=== PATIENT | female | born 1945 | race Caucasian/White ===

== ENCOUNTER → 2021-04-04 18:04 | Outpatient (CLI) | payer OTHER, SELFPAY ==
--- NOTE | ~2021-04-04 | DEXA_ITS ---
Bone Density Report Name: Allie Vela Age: 76 Sex: Female Ethnicity: White Date of : 1945 Indication: osteopenia; parental hip fracture; height loss; hysterectomy; Referring Provider: Kevon, Adriana [place] Study: Bone densitometry was performed. Exam Date: April 04, 2021 Accession number: [id number] Bone Density: Region BMD T-score Z-score Classification AP Spine (L1, L2, L4) 0.842 -1.7 0.7 Osteopenia Femoral Neck (Left) 0.640 -1.9 0.2 Osteopenia Total Hip (Left) 0.751 -1.6 0.2 Osteopenia Femoral Neck (Right) 0.571 -2.5 -0.4 Osteoporosis Total Hip (Right) 0.658 -2.3 -0.5 Osteopenia Total Hip Mean 0.705 -2.0 -0.2 Osteopenia World Health Organization criteria for BMD impression classify patients as: Normal (T-score at or above -1.0), Osteopenia (T-score between -1.0 and -2.5), or Osteoporosis (T-score at or below -2.5). 10-year Fracture Risk: FRAX not reported because: Some T-score for Spine Total or Hip Total or Femoral Neck at or below -2.5 Previous Exams: Region Exam Age BMD T-score BMD Change BMD Change Date g/cm2 vs Baseline vs Previous AP Spine(L1, L2, L4) 04/04/2021 76 0.842 -1.7 -0.142* -0.088* 10/21/2018 73 0.931 -0.9 -0.053* 0.049* 09/13/2015 70 0.881 -1.4 -0.103* -0.070* 02/17/2013 67 0.951 -0.8 -0.033* 0.029 08/08/2010 65 0.921 -1.0 -0.062 -0.014 12/30/2008 63 0.935 -0.9 -0.049* -0.049* 07/02/2006 61 0.984 -0.5 Total Hip(Left) 04/04/2021 76 0.751 -1.6 -0.165* -0.117* 10/21/2018 73 0.868 -0.6 -0.048* 0.001 09/13/2015 70 0.867 -0.6 -0.049* 0.070* 02/17/2013 67 0.797 -1.2 -0.119* -0.028 08/08/2010 65 0.825 -1.0 -0.091 0.037 12/30/2008 63 0.788 -1.3 -0.128* -0.128* 07/02/2006 61 0.916 -0.2 Total Hip(Right) 04/04/2021 76 0.658 -2.3 -0.196* -0.113* 10/21/2018 73 0.771 -1.4 -0.084* -0.017 09/13/2015 70 0.788 -1.3 -0.067* 0.067* 02/17/2013 67 0.721 -1.8 -0.133* -0.044 08/08/2010 65 0.765 -1.4 -0.089 0.026 12/30/2008 63 0.739 -1.7 -0.116* -0.116* 07/02/2006 61 0.854 -0.7 *Denotes significance at 95% confidence level, LSC for AP Spine = 0.022 g/cm2, LSC for Total Hip = 0.027 g/cm2 Clinical Information Provided by Patient:
== END ==
PROVIDERS: PCP Internal Medicine; Visit Provider Internal Medicine
DX: Z78.0 Asymptomatic menopausal state (principal); M85.89 Other specified disorders of bone density and structure, multiple sites; M81.0 Age-related osteoporosis without current pathological fracture
CPT/HCPCS: 77080

== ENCOUNTER 2021-07-04 13:22 | Inpatient (IN) | payer OTHER, SELFPAY ==
--- NOTE | ~2021-07-04 | XR_ITS ---
XR hip RT 1V 07/05/2021 06:24 Indication: Preop right hip replacement Procedure: 2 views right hip Comparison: No prior studies for comparison. Findings: Mild osteoarthritis of the right hip. In no fracture, subluxation or dislocation. No signif icant soft tissue abnormality. No foreign bodies. There is a subchondral cyst medial aspect of the fe moral head, likely degenerative. Impression: 1: Mild osteoarthritis of the right hip. Reviewed, dictated and finalized at location A. Impression: 1: Mild osteoarthritis of the right hip.
--- NOTE | ~2021-07-04 | XR_ITS ---
EXAMINATION: XR hip LT min 3V w AP pelvis DATE: 07/04/2021 13:45 INDICATION: Left hip pain. Fall. TECHNIQUE: An anteroposterior view of the pelvis and 3 views of left hip were obtained. COMPARISON: None. FINDINGS: There is a subcapital fracture of left femoral neck. The distal fracture fragment demonstra gaye impaction, 7 mm lateral displacement, and 9 mm anterior displacement. There is mild osteoarthriti s of the hips. There is moderate lumbar spondylosis. Osteitis pubis is noted. IMPRESSION: 1. Subcapital fracture of left femoral neck. 2. Mild osteoarthritis of the hips. Reviewed, dictated and finalized at location B.
--- NOTE | ~2021-07-04 | XR_ITS ---
EXAMINATION: XR knee LT 2V DATE: 07/04/2021 14:11 INDICATION: Left knee injury. TECHNIQUE: 2 views of left knee were obtained. COMPARISON: Left knee radiographs 02/09/2014 FINDINGS: Bone alignment is normal. No fracture. There is mild osteoarthritis of lateral and patellof emoral compartments. No knee joint effusion. IMPRESSION: 1. Mild left knee osteoarthritis. Reviewed, dictated and finalized at location B.
--- NOTE | ~2021-07-04 | XR_ITS ---
EXAMINATION: XR chest 1V portable DATE: 07/04/2021 14:11 INDICATION: Abnormal electrocardiogram. Preop. TECHNIQUE: A single frontal view of the chest was obtained. COMPARISON: None. FINDINGS: A calcified right lung nodule and calcified right hilar and mediastinal lymph nodes are con sistent with old granulomatous disease. No pleural effusion or pneumothorax. The heart size is normal . IMPRESSION: 1. No acute cardiopulmonary disease. Reviewed, dictated and finalized at location B.
--- NOTE | ~2021-07-04 | XR_ITS ---
XR surgery orthopedic DATE: 07/05/2021 19:12 INDICATION: Intraoperative left hip TECHNIQUE: Portable crosstable AP view COMPARISON: None FINDINGS: There is resection of the right femoral head and neck. A femoral broach is present, extendi ng into the proximal shaft intramedullary canal. There is expected subcutaneous emphysema in the right hip area. Diffuse osteopenia. IMPRESSION: Femoral broach in the right femur following femoral head and neck resection Reviewed, dictated and finalized at Location A. Reviewed, dictated and finalized at location A. IMPRESSION: Femoral broach in the right femur following femoral head and neck r esection
--- NOTE | ~2021-07-04 | XR_ITS ---
XR hip LT 1V w AP pelvis DATE: 07/05/2021 20:17 INDICATION: Postoperative left hip TECHNIQUE: Portable postoperative AP and crosstable lateral views COMPARISON: 07/04/2021 left hip FINDINGS: Status post left femoral head resection and bipolar left hip replacement. Surgical drain o verlies the left hip are, with minimal expected postoperative subcutaneous emphysema. IMPRESSION: Left bipolar hip replacement Reviewed, dictated and finalized at location A.
[2021-07-04 13:24] VITALS: BP 178/73; PULSE 60; RESP 16; TEMP 37.2; O2SAT 99
--- NOTE | 2021-07-04 13:52 | ECG_ITS ---
Measurements Intervals [place] Rate: 61 P: 77 MA: 163 QRS: 47 QRSD: 114 T: 70 QT: 427 QTc: 432 Interpretive Statements SINUS RHYTHM INCOMPLETE RIGHT BUNDLE BRANCH BLOCK BASELINE ARTIFACT- II, III, AVR, AVF, V1, V3-V6 BORDERLINE ECG Electronically Signed On 07-04-2021 15:07:13 CDT by Ross Castano D.O.
--- NOTE | 2021-07-04 14:06 | ED.FALL ---
HPI - Fall General Chief Complaint: Fall Stated Complaint: FALL S/P TRIPPING Time Seen by Provider: 07/04/21 13:52 Source: patient History of Present Illness HPI Narrative: Patient is 76 years old white female tripped and fell landing on the left hip. Patient denies other injuries. Patient had history of hypertension, hyperlipidemia and hypothyroidism. Is not on blood thinner, denied any history of stroke or heart attack. Does not smoke or drink or uses drugs. Related Data Home Medications Medication Instructions Recorded Confirmed gabapentin TID 07/04/21 levothyroxine DAILY 07/04/21 losartan DAILY 07/04/21 pravastatin DAILY 07/04/21 Allergies Allergy/AdvReac Type Severity Reaction Status Date / Time adhesive tape AdvReac Severe RASH Verified 07/04/21 14:44 Review of Systems Review of Systems: CONSTITUTIONAL: Denies fever, chills, or sweats. EYES: Denies visual changes, redness, or discharge. ENT: Denies rhinorrhea, congestion, sore throat, or otalgia. CARDIOVASCULAR: Denies chest pain, palpitations, or edema. RESPIRATORY: Denies cough or dyspnea. GASTROINTESTINAL: Denies abdominal pain, nausea, vomiting, or diarrhea. GENITOURINARY: Denies dysuria or hematuria. SKIN: Denies rash or itching. MUSCULOSKELETAL: Denies back pain, joint pain, or myalgia. NEUROLOGIC: Denies headache, numbness, or weakness. PSYCHIATRIC: Denies anxiety or depression. [facility] Family History Family History Other Cerebrovascular accident Diabetes mellitus Family history of arthritis Social History Social History Smoking status: Never smoker Alcohol intake: current Exam Narrative: General appearance: Well-developed, well-nourished Skin: Normal color Head: Normocephalic, nontraumatic Eyes: Clear conjunctiva ENT: Oropharynx normal, ears normal, nose normal Neck: Supple, nontender Chest and respiratory: Airway patent, no respiratory distress, no accessory muscle use Heart: Regular rate/rhythm Abdomen: Soft, nontender, no organomegaly, quiet bowel sounds Vascular: Normal peripheral pulses, normal capillary refill. Musculoskeletal: Good range of motion of left lower extremity at the hip area Neurologic: Alert and oriented ?3, [employer] is normal as tested, no gross motor deficit Course Course Emergency Course: Stable Consultations Consultation #1: Dr. De La Garza Date: 07/04/21 Time: 15:06 Vital Signs Vital signs: Vital Signs Temperature 37.2 C 07/04/21 13:24 Pulse Rate 60 07/04/21 13:24 Respiratory Rate 16 07/04/21 13:24 Blood Pressure 178/73 H 07/04/21 13:24 Pulse Oximetry 99 07/04/21 13:24 Temperature 37.2 C 07/04/21 13:24 Pulse Rate 67 07/04/21 14:11 Respiratory Rate 16 07/04/21 13:24 Blood Pressure 174/81 H 07/04/21 14:11 Pulse Oximetry 99 07/04/21 14:11 MDM - Fall MDM Narrative Medical decision making narrative: Hip fracture is my concern. X-ray ordered. Which showed left subcapital fracture of the femoral neck. Labs, chest x-ray, EKG ordered.. Admission to hospitalist, discussed with Dr. Beavers Differential Diagnosis Differential diagnosis: Likely other (Fall, left hip fracture) Lab Data Result diagrams: 07/04/21 14:15 07/04/21 14:15 Labs: Lab Results 07/04/21 07/04/21 07/04/21 Range/Units 14:15 14:15 14:15 WBC Pending RBC Pending Hgb Pending Hct Pending MCV Pending MCH Pending MCHC Pending RDW Pending Plt Count Pending MPV Pending Immature Gran % (Auto) Pending Neut % (Auto) Pending Lymph
[2021-07-04 14:11] VITALS: BP 174/81; PULSE 67; O2SAT 99
[2021-07-04 14:25] LABS: Basophils Percent Auto 0.3 % (0.2-1.2); Eosinophils Absolute Auto 0.1 K/mm3 (0-0.3); Eosinophils Percent Auto 0.4 % (0-4.4); Hematocrit 40.3 % (37.0-47.0); Hemoglobin 13.4 g/dL (12.0-15.0); Immature Granulocyte Absolute 0.09 K/mm3 (0.00-0.031); Immature Granulocyte Percent A 0.8 % (0-0.5); Lymphocytes Absolute Auto 2.15 K/mm3 (0.9-3.2); Lymphocytes Percent Auto 18.5 % (18.3-44.2); Mean Corpuscular HGB Conc 33.3 g/dl (32-36); Mean Corpuscular Volume 93.3 fl (80-100); Mean Platelet Volume 9.7 fl (7.4-10.4); Monocytes Absolute Auto 0.6 K/mm3 (0.1-0.6); Monocytes Percent Auto 4.8 % (2.6-8.5); Neutrophils Absolute Auto 8.8 K/mm3 (1.3-6.7); Neutrophils Percent Auto 75.2 % (45.5-73.1); Platelet Count Result 184 k/mm3 (150-375); Red Blood Count 4.32 M/mm3 (4.2-5.4); Red Cell Distribution Width 12.8 % (11.5-14.5); White Blood Count 11.7 K/mm3 (4.5-10.0)
[2021-07-04] MEDS: MORPHINE SULFATE (*CRX) 4 MG/ML INJ IV PUSH ×2 (14:32→17:49)
[2021-07-04] MEDS: ONDANSETRON INJ 4 MG/2 ML VIAL IV PUSH ×2 (14:33→17:49)
[2021-07-04 14:35] LABS: Anion Gap -1 mmol/L (8-16); Blood Urea Nitrogen 18 mg/dL (7-17); Carbon Dioxide 30 mmol/L (22-30); Chloride 103 mmol/L (98-107); Estimated CRCL calculation 52 ml/min; Estimated Glomerular Filt Rate > 60; Glucose 84 mg/dL (65-110); Potassium 3.8 mmol/L (3.4-5.0); Sodium 132 mmol/L (137-145)
[2021-07-04 14:36] LABS: INR 0.9; Prothrombin Time 11.6 Seconds (11.1-14.7)
[2021-07-04 14:37] LABS: Partial Thromboplastin Time 22.3 SECONDS (22.3-36.8)
--- NOTE | 2021-07-04 15:15 | PM.IMHP ---
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 She denies hitting her head, she denies dizziness or lightheadedness, and she denies loss of consciousness. She did immediately try to get up and managed to get to her feet despite severe pain. She used her 's cane and leaning on the wall to get herself to the car, so they could come to the ER. Her chest x-ray was clear of any acute findings. Her lab work was without concern and near normal, only WBC 11.7., no fevers no sick symptoms. She denies chest pain denied shortness of breath denies headache, denies abdominal pain, denies nausea or vomiting. States that she has chronic episodes of diarrhea that come and go intermittently. She has not had diarrhea in the last couple days. On hip xrays, a subcapital fracture of left femoral neck shows. The distal fracture fragment demonstrates impaction, 7 mm lateral displacement, and 9 mm anterior displacement. There is mild osteoarthritis of the hips and moderate lumbar spondylosis. 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 ER physician stated that he consult Dr. Allison and that Dr. Allison would likely do her surgery tomorrow. Patient stated that she sees Dr. Lund at [facility] for her primary care physician. Advised patient to let the nurse know all of her home medications so we could get those orders in place. Allie denies taking any anticoagulation medications, denies taking aspirin. She did have a history of a right knee arthroplasty by Dr. Foster in September of 2011 due to a right lateral meniscal tear and a medial meniscus tear. Patient will be admitted to the hospital as inpatient at this time for further treatment and monitoring. Chief Complaint: Fall, Left hip pain and fracture Review of Systems Review of Systems: All systems reviewed & are unremarkable except as noted in HPI and below Constitutional: Constitutional: Reports as per HPI, Denies excessive sweating, Denies headache(s), Denies increased appetite, Denies snoring, Reports weakness (in left leg only) and Denies weight gain Eyes: Eyes: Reports as per HPI, Denies blurry vision, Denies exophthalmos, Denies diplopia, Denies floaters and Denies loss of peripheral vision ENT: Reports as per HPI, Reports Normal hearing present, Denies facial pain, Denies headache(s), Denies odynophagia and Denies tinnitus Cardiovascular: Cardiovascular: Reports as per HPI and Denies chest pain Respiratory: Respiratory: Reports as per HPI, Denies chest congestion, Denies cough, Denies dyspnea, Denies dyspnea on exertion, Denies snoring and Denies wheezing Gastrointestinal: Gastrointestinal: Reports as per HPI, Denies melena, Denies constipation, Reports diarrhea (chronically and intermittentyly, not in last couple days.), Denies nausea, Denies odynophagia, Denies vomiting and Denies hematemesis Genitourinary: Genitourinary: Reports as per HPI, Denies hematuria and Denies flank pain Musculoskeletal: Musculoskeletal: Reports as per HPI, Denies back pain, Reports arthralgias (to left elbow, left hip, left knee) and Denies neck pain Integumentary/Breasts: Skin/Breast: Reports as per HPI Neurologic: Reports as per HPI, Reports abnormal gait (untested), Denies confusion, Denies headache(s) and Denies numbness Psychiatric: Psychiatric: Reports as per HPI, Denies anxiety and Denies confusion Endocrine: Endocrine: Denies excessive sweating PMFSH Family History Family History Other Cerebrovascular accident Diabetes mellitus Family history of arthritis Social History Social History (Updated 07/04/21 @ 18:32 by Aracelis Farmer NP) Smoking
[2021-07-04 15:20] VITALS: BP 147/63; PULSE 76; RESP 14; O2SAT 96
[2021-07-04 16:41] VITALS: BP 113/83; PULSE 66; RESP 14; O2SAT 97
--- NOTE | 2021-07-04 17:15 | PC.NURSE ---
Addendum entered by Re Rubi RN 07/04/21 17:16: correct time of entry: [id number] Original Note: attempted to call report for 307. nurse will call back to ED when avail.
[2021-07-04] MEDS: SODIUM CHLORIDE 0.9% IV 1,000 ML 125 ML IV CONT (17:49)
[2021-07-04 17:50] VITALS: BP 127/60; PULSE 65; RESP 14; O2SAT 97
--- NOTE | 2021-07-04 18:04 | ADMGEN ---
This patient, Allie Vela, was admitted to 3 [facility] Surg Room 307-02. Patient/family oriented to hospital policies and general routines including ID bracelet, bed and alarms, visiting hours, pain management, procedures, bathroom and other care routines, personal items, smoking policy, room service/diet, and visiting hours. Information on how to activate the Rapid Response Team has been discussed. Patient/Family are encouraged to report perceived risks to care and to ask questions if they do not understand what they are told or what they should do.
[2021-07-04 18:21] VITALS: BMI 31.6
[2021-07-04] MEDS: GABAPENTIN 300 MG CAPSULE PO (21:28)
[2021-07-04] MEDS: PRAVASTATIN SODIUM 20 MG TABLET 40 MG BY MOUTH (21:29)
[2021-07-04 21:45] VITALS: BP 152/63; PULSE 60; RESP 18; TEMP 36.3; O2SAT 96
[2021-07-05] VITALS (11 sets, daily range): BP systolic 91–164; BP diastolic 37–71; PULSE 58–73; RESP 9–18; TEMP 36.2–37.3; O2SAT 94–100
[2021-07-05] MEDS: SODIUM CHLORIDE 0.9% IV 1,000 ML 125 ML IV CONT ×2 (03:44→12:25)
--- NOTE | 2021-07-05 06:27 | PM.CNOR ---
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 She landed on her left knee left elbow and sustained a left subcapital femoral neck fracture [place] 4 with translational displacement into varus. She had no prior symptoms in the hip. She has an abrasion over the left knee and abrasion at the left elbow over the olecranon. She was brought the emergency room when she was unable to walk. X-rays of the left knee and left hip were obtained. The left knee x-rays unremarkable. She has a history of osteoarthritis in the right knee. She had arthroscopy of the right knee back in 2010 for degenerative meniscus tears. She has ongoing symptoms with that and in fact her primary care physician in [place] gave her cortisone shot in the right knee just 1 or 2 weeks ago. She also had some epidural injections in her back at that time. She has no history of blood clots. She does have some dental problems and a few months ago had infection around 1 tooth that was removed and she has had complete resolution of her infection there. She was only on antibiotics for short time and that was a few months ago. She recently had a bone density test in March of this year which showed a T-score of-2.3. She takes calcium plus vitamin-D. I have advised her that with this hip fracture, the indications for pharmacologic treatment of her osteopenia are changed and would be indicated now in addition to the calcium plus vitamin-D. She has a history of high cholesterol. Hypertension hypothyroidism. Her creatinine was 0.8 creatinine clearance 52. Her BUN was slightly elevated at 18. Her sodium was slightly low at 132. Morning labs are pending. Hemoglobin 13.4. Platelets 184 1000. White count slightly elevated at 11.7 which is nonspecific in the setting. She does have a Rtiter catheter in place. On exam she had full range of motion of her left elbow. There is a 1 in area of erythema which is a bruise right over the olecranon. There is no soft tissue swelling though. It seems unlikely that she has a fracture there and looks like she just has a contusion to the skin over the olecranon. Her left knee similarly shows an abrasion over the inferior pole of patella about 1/2 cm diameter is superficial. She has no effusion or tenderness about the left knee on palpation otherwise. She has palpable pedal pulses on the left and normal sensation no lower extremity edema. Her BMI is 31.6. I obtained an x-ray of the right hip for templating purposes. Impression patient has a displaced subcapital left femoral neck fracture. I have recommended bipolar hemiarthroplasty. She is younger and to avoid the possibility of a cemented hip loosening over the years a Press-Fit hip may be best for her with a collar. If she does have fracture extending into the femoral neck below the level of the neck cut a supplemental cerclage wire may be necessary. Her joint space looks normal on the x-rays and she had no previous symptoms so I think a bipolar would be appropriate for her. We will schedule this for later this afternoon. I have discussed risks of surgery with her in detail including infection blood clots fracture surgical complications loosening and risk of medical complications such as heart attack stroke pulmonary embolism and . History of Present Illness HPI Consult date: 07/05/21 Chief complaint: Closed hip fracture [facility] Family History Family History Other Cerebrovascular accident Diabetes mellitus Family history of arthritis Social History Social History (Updated 07/04/21 @ 18:32 by Aracelis Farmer NP) Smoking status: Never smoker Alcohol intake: current Drinks per week: 5 Substance use: never Living arrangements: with family Additional living arrangements c
[2021-07-05 07:04] LABS: Basophils Absolute Auto 0.1 K/mm3 (0.0-0.1); Basophils Percent Auto 0.5 % (0.2-1.2); Eosinophils Absolute Auto 0.2 K/mm3 (0-0.3); Eosinophils Percent Auto 2.1 % (0-4.4); Hematocrit 37.1 % (37.0-47.0); Immature Granulocyte Absolute 0.04 K/mm3 (0.00-0.031); Immature Granulocyte Percent A 0.4 % (0-0.5); Lymphocytes Percent Auto 21.4 % (18.3-44.2); Mean Corpuscular HGB Conc 32.3 g/dl (32-36); Mean Corpuscular Hemoglobin 30.5 pg (26-34); Mean Corpuscular Volume 94.2 fl (80-100); Mean Platelet Volume 10.5 fl (7.4-10.4); Monocytes Absolute Auto 0.7 K/mm3 (0.1-0.6); Monocytes Percent Auto 6.3 % (2.6-8.5); Neutrophils Absolute Auto 7.4 K/mm3 (1.3-6.7); Neutrophils Percent Auto 69.3 % (45.5-73.1); Platelet Count Result 150 k/mm3 (150-375); Red Blood Count 3.94 M/mm3 (4.2-5.4); White Blood Count 10.7 K/mm3 (4.5-10.0)
[2021-07-05 07:13] LABS: Alanine Aminotransferase 19 U/L (4-35); Albumin Level 3.3 g/dL (3.5-5.1); Alkaline Phosphatase 52 U/L (38-126); Anion Gap 4 mmol/L (8-16); Aspartate Amino Transferase 23 U/L (14-36); Bilirubin,Total 0.9 mg/dL (0.2-1.3); Blood Urea Nitrogen 11 mg/dL (7-17); Calcium 8.2 mg/dL (8.4-10.2); Carbon Dioxide 25 mmol/L (22-30); Chloride 105 mmol/L (98-107); Estimated CRCL calculation 72 ml/min; Estimated Glomerular Filt Rate > 60; Glucose 93 mg/dL (65-110); Sodium 134 mmol/L (137-145)
[2021-07-05 08:50] LABS: Vitamin D 25 Hydroxy 83.8 ng/mL
[2021-07-05] MEDS: MORPHINE SULFATE (*CRX) 4 MG/ML INJ IV PUSH ×2 (09:26→15:56)
--- NOTE | 2021-07-05 12:11 | PM.IMPN ---
Progress Note: A&P Assessment and Plan (1) Fall: Qualifiers: Encounter type: initial encounter Qualified Code(s): W19.XXXA - Unspecified fall, initial encounter Code(s): W19.XXXA - Unspecified fall, initial encounter Status: Acute Assessment and Plan: Mechanical fall with no dizziness, chest pain or shortness of breath -plan for surgery today -ACS NsQip risk stratification for sx is below average risk in all categories, okay to proceed with surgery. Pt understands risks. -pain medication, PT/OT and anticoagulation per Ortho -Ritter catheter will remain through surgery and hopefully this will be discontinued 1-2 days after surgery (2) Closed left hip fracture: Qualifiers: Encounter type: initial encounter Qualified Code(s): S72.002A - Fracture of unspecified part of neck of left femur, initial encounter for closed fracture Code(s): S72.002A - Fracture of unspecified part of neck of left femur, initial encounter for closed fracture Status: Acute Assessment and Plan: As above (3) Hypothyroidism: Code(s): E03.9 - Hypothyroidism, unspecified Status: Acute Assessment and Plan: Continue levothyroxine -TSH within normal limits (4) HTN (hypertension), benign: Code(s): I10 - Essential (primary) hypertension Status: Acute Assessment and Plan: Last blood pressure 141/49 -continue losartan Time Spent With Patient Time with patient: 25 - 35 minutes Subjective Date/time seen: 07/05/21 12:11 Interval history: Pt is a 76-year-old female here for mechanical fall. Patient was seen today and states her pain is a 1 or 2 after her pain medications. She initially says she feels like her left leg is numb but after the physical exam with a sensation test, she says it feels more like a tightening. Pt denies nausea, vomiting, fevers, chills, constipation, diarrhea, chest pain, sob, or abdominal pain. She has no history of COPD, dyspnea on exertion with activity, or hx of CP. Review of Systems Review of Systems: All systems reviewed & are unremarkable except as noted in HPI and below Exam Narrative: General: Well developed well nourished patient in NAD HEENT: normocephalic Neck: supple Neuro: Alert and oriented x4. Full sensation intact to her left extremity CV:RRR Resp:CTA Abd: Soft, non distended. No pain to palpation. Positive bowel sounds Extremities: No swelling, erythema, or pain to palpation to the lower extremities. Pulses intact to the left leg as well as sensation Objective Data Vital Signs Vital Signs: Vital Signs - 24 hr 07/04/21 13:24 07/04/21 14:11 07/04/21 15:20 Temperature 98.9 F Pulse Rate 60 67 76 Respiratory Rate 16 14 Blood Pressure 178/73 H 174/81 H 147/63 H Pulse Oximetry 99 99 96 07/04/21 16:41 07/04/21 17:50 07/04/21 21:45 Temperature 97.4 F L Pulse Rate 66 65 60 Respiratory Rate 14 14 18 Blood Pressure 113/83 127/60 152/63 H Pulse Oximetry 97 97 96 07/05/21 05:52 Temperature 97.7 F Pulse Rate 60 Respiratory Rate 18 Blood Pressure 141/49 H Pulse Oximetry 98 Intake/Output Intake/Output: Intake & Output 07/02/21 07/03/21 07/04/21 07/05/21 23:59 23:59 23:59 23:59 Intake Total 1000 Output Total 700 Balance 300 Meds/Results Medications: Active Medications Generic Name Dose Route Start Last Admin Trade Name Freq PRN Reason Stop Dose Admin Hydrocodone Bitart/Acetaminophen 1 tab 07/04/21 18:53 Hydrocodone/Acetaminophen (*Crx) 5-325 Mg Tablet PO Q6H PRN Pain Rated 4-6 Calcium Carbonate 500 mg 07/05/21 09:00 Calcium/Vitamin D 500 Mg Tablet PO BID SOL Gabapentin 300 mg 07/04/21 19:35 07/04/21 21:28 Gabapentin 300 Mg Capsule PO 300 mg TID SOL Administration Acetaminophen 1,000 mg in 100 mls @ 400 mls/hr 07/04/21 15:15 Ofirmev 1,000 Mg Ivpb IVPB 07/05/21 15:16 Q6H PRN Mild Pain (1
--- NOTE | 2021-07-05 12:37 | WPDANESEPPF ---
Anes - Initial Pre Proc Eval Procedure: Operation Date: 07/05/21 15:30 Proposed Procedures p Left Bipolar - Jose Allison MD <Steve Reveles MD - Last Filed: 07/06/21 07:14> Date/Time: 07/05/21 12:37 <Steve Reveles MD - Last Filed: 07/06/21 07:14> Surgeon: Sienna Diamond PA-C <Steve Reveles MD - Last Filed: 07/06/21 07:14> Pre Op Diagnosis: Closed hip fracture <Steve Reveles MD - Last Filed: 07/06/21 07:14> Patient Data Age: 76 Gender: F Height: 1.63 m Weight: 83.5 kg <Steve Reveles MD - Last Filed: 07/06/21 07:14> Last Vital Signs Temp 36.5 C 07/05/21 05:52 Pulse 60 07/05/21 05:52 Resp 18 07/05/21 05:52 BP 141/49 H 07/05/21 05:52 Pulse Ox 98 07/05/21 05:52 <Steve Reveles MD - Last Filed: 07/06/21 07:14> Allergies Allergy/AdvReac Type Severity Reaction Status Date / Time adhesive tape AdvReac Severe RASH Verified 07/04/21 18:39 <Steve Reveles MD - Last Filed: 07/06/21 07:14> Home Medications Medication Instructions Recorded Confirmed Type calcium carbonate-vitamin D3 1 cap PO BID 07/04/21 07/04/21 History [Calcium With Vitamin D3] gabapentin 300 mg TID 07/04/21 07/04/21 History lactobacillus combination no.4 3,000 mmu cells PO DAILY 07/04/21 07/04/21 History [Probiotic] levothyroxine 88 mcg PO DAILY 07/04/21 07/04/21 History losartan 50 mg PO DAILY 07/04/21 07/04/21 History pravastatin 40 mg HS 07/04/21 07/04/21 History <Steve Reveles MD - Last Filed: 07/06/21 07:14> Laboratory Tests 07/04/21 07/04/21 07/04/21 14:15 14:15 14:15 WBC 11.7 K/mm3 H K/mm3 (4.5-10.0) RBC 4.32 M/mm3 M/mm3 (4.2-5.4) Hgb 13.4 g/dL g/dL (12.0-15.0) Hct 40.3 % % (37.0-47.0) MCV 93.3 fl fl (80-100) MCH 31.0 pg pg (26-34) MCHC 33.3 g/dl g/dl (32-36) RDW 12.8 % % (11.5-14.5) Plt Count 184 k/mm3 k/mm3 (150-375) MPV 9.7 fl fl (7.4-10.4) Immature Gran % (Auto) 0.8 % H % (0-0.5) Neut % (Auto) 75.2 % H % (45.5-73.1) Lymph % (Auto) 18.5 % % (18.3-44.2) [place] % (Auto) 4.8 % % (2.6-8.5) Eos % (Auto) 0.4 % % (0-4.4) Baso % (Auto) 0.3 % % (0.2-1.2) Lymph # (Auto) 2.15 K/mm3 K/mm3 (0.9-3.2) [place] # (Auto) 0.6 K/mm3 K/mm3 (0.1-0.6) Eos # (Auto) 0.1 K/mm3 K/mm3 (0-0.3) Baso # (Auto) 0.0 K/mm3 K/mm3 (0.0-0.1) Abs Immat Gran (auto) 0.09 K/mm3 H K/mm3 (0.00-0.031) Absolute Neuts (auto) 8.8 K/mm3 H K/mm3 (1.3-6.7) Absolute Nucleated RBC 0.0 K/mm3 K/mm3 (0.0-0.012) Nucleated RBC % 0.0 % % (0.0-0.2) PT 11.6 Seconds Seconds (11.1-14.7) INR 0.9 APTT 22.3 SECONDS SECONDS (22.3-36.8) Sodium 132 mmol/L L mmol/L (137-145) Potassium 3.8 mmol/L mmol/L (3.4-5.0) Chloride 103 mmol/L mmol/L (98-107) Carbon Dioxide 30 mmol/L mmol/L (22-30) Anion Gap -1 mmol/L L mmol/L (8-16) BUN 18 mg/dL H mg/dL (7-17) Creatinine 0.80 mg/dL mg/dL (0.7-1.0) Estim Creat Clear Calc 52 ml/min ml/min Estimated GFR > 60 (59 - ) Glucose 84 mg/dL mg/dL (65-110) Calcium 9.0 mg/dL mg/dL (8.4-10.2) Total Bilirubin AST ALT Alkaline Phosphatase Total Protein Albumin Vitamin D 25-Hydroxy TSH 07/05/21 07/05/21 07/05/21 05:37 05:41 05:41 WBC 10.7 K/mm3 H K/mm3 (4.5-10.0) RBC 3.94 M/mm3 L M/mm3 (4.2-5.4) Hgb 12.0 g/dL g/dL (12.0-15.0) Hct 37.1 % % (37.0-47.0) MCV 94.2 fl fl (80-100) MCH 30.5 pg pg (26-34) MCHC 32.3 g/dl g/dl (32-36) RDW 1
--- NOTE | 2021-07-05 16:07 | PC.NURSE ---
To OR per bed.
[2021-07-05] MEDS: LACTATED RINGERS 1,000 ML 30 ML IV CONT ×2 (16:55→20:15)
[2021-07-05] MEDS: ceFAZolin 2 GM/D5W 50 ML 2 GM/50 ML BAG IVPB (18:00)
[2021-07-05] MEDS: ceFAZolin SODIUM 1 GM VIAL 3 GM IRRIGATION (18:24)
--- NOTE | 2021-07-05 19:53 | W.PM.PROC2 ---
Procedure Note - Detailed Date of Procedure 07/05/21 Pre-op Diagnosis Garden 4 subcapital transcervical left femoral neck fracture Post-op Diagnosis same Procedure Performed Press-Fit bipolar hemiarthroplasty with Actis device. Surgeon Jose Allison MD [employer] maria esther Anesthesia general Indications Displaced hip fracture Findings Same Description of Procedure Patient was brought to the operating room and general anesthesia was administered. The left hip was thoroughly scrubbed with the chlorhexidine cloth. She was placed in the lateral decubitus position left hip prepped draped usual fashion. She received 2 g of Ancef weight based vancomycin 1 g of tranexamic acid preoperatively. A 6 in longitudinal incision was made over lateral aspect of the hip. The fascia was incised in line with the incision. The anterior 50% gluteus medius and gluteus minimus were elevated off the greater trochanter. Capsule was incised. Femoral neck was dislocated from the capsule and provisional femoral neck osteotomy made. Femoral head was removed and measured 45.5 mm in diameter and the 46 trial fit well. The articular cartilage on the femoral head and the acetabulum were normal. The femur was broached to a size 3 an intraoperative x-ray was obtained which showed equal leg lengths with the position of the broach. We calcar planed to the level of the broach and assess that the broach was not stable to torsional stress and we were able to insert a size 4 broach which was countersunk an additional 1 mm with new calcar planing and this had complete torsional stability was very tight. The size 4 Actis stem standard offset was chosen and fully seated until the calcar rested on the femoral neck. The calcar planing brought the surface of the femoral neck just below the posterior fracture. After trialing again the 1.5 x 28 mm head was assembled with the 46 mm bipolar and placed on the clean and dried trunnion and firmly impacted. The wound again irrigated with antibiotic solution hip reduced ability reconfirmed with excellent range of motion. Capsule was reapproximated with 2. Ethibond. The abductors reattached to the greater trochanter with 5. Ethibond and 2. Ethibond. The fascia was reapproximated with 2. Vicryl and running 1. Unidirectional barbed Stratafix suture. A drain was placed deep in the subcutaneous fat layer. The fat and skin were closed with 2 subcutaneous Vicryl and glue EBL was 3 in cc. 3rd g Ancef given at time of wound closure. No known complications. Implants Actis Estimated Blood Loss 300 Urine Output 300 Drains Yes Packing No Pathology yes Complications No immediate complications Condition stable Disposition PACU
[2021-07-05] MEDS: ceFAZolin SODIUM 1 GM VIAL IV PUSH (20:00)
[2021-07-05] MEDS: TRANEXAMIC ACID 1,000 MG/10 ML AMPUL 1 MG IV PUSH (20:01)
[2021-07-05] MEDS: DEXTROSE 5%/0.45% SOD CHL 1,000 ML 80 ML IV CONT (21:44)
[2021-07-05] MEDS: oxyCODONE HCL (*CRX) 2.5 MG TAB IR PO (21:44)
[2021-07-05] MEDS: PRAVASTATIN SODIUM 20 MG TABLET 40 MG BY MOUTH (21:44)
[2021-07-05] MEDS: ACETAMINOPHEN 500 MG TABLET 1000 MG PO (21:44)
[2021-07-06] VITALS (8 sets, daily range): BP systolic 113–140; BP diastolic 52–63; PULSE 61–74; RESP 16–18; TEMP 36.3–37.2; O2SAT 98–100
[2021-07-06] MEDS: oxyCODONE HCL (*CRX) 2.5 MG TAB IR PO ×6 (01:53→21:03)
[2021-07-06] MEDS: LEVOTHYROXINE SODIUM 88 MCG TABLET PO (05:34)
[2021-07-06] MEDS: ACETAMINOPHEN 500 MG TABLET 1000 MG PO ×2 (05:34→12:22)
[2021-07-06 06:33] LABS: Basophils Percent Auto 0.1 % (0.2-1.2); Hematocrit 35.4 % (37.0-47.0); Hemoglobin 11.7 g/dL (12.0-15.0); Immature Granulocyte Absolute 0.11 K/mm3 (0.00-0.031); Immature Granulocyte Percent A 0.8 % (0-0.5); Lymphocytes Percent Auto 5.9 % (18.3-44.2); Mean Corpuscular HGB Conc 33.1 g/dl (32-36); Mean Corpuscular Hemoglobin 30.5 pg (26-34); Mean Corpuscular Volume 92.2 fl (80-100); Mean Platelet Volume 10.4 fl (7.4-10.4); Neutrophils Absolute Auto 11.7 K/mm3 (1.3-6.7); Neutrophils Percent Auto 86.2 % (45.5-73.1); Platelet Count Result 137 k/mm3 (150-375); Red Blood Count 3.84 M/mm3 (4.2-5.4); Red Cell Distribution Width 12.7 % (11.5-14.5); White Blood Count 13.6 K/mm3 (4.5-10.0)
[2021-07-06] MEDS: ACIDOPHILUS/BULGARICUS CHEWABLE TABLET 1 TABLET PO (09:55)
[2021-07-06] MEDS: polyethylene glycoL 3350 17 GM POWD.PACK PO (09:56)
[2021-07-06] MEDS: LOSARTAN POTASSIUM 50 MG TABLET PO (09:56)
[2021-07-06] MEDS: GABAPENTIN 300 MG CAPSULE PO ×3 (09:56→17:01)
[2021-07-06] MEDS: SENNA/DOCUSATE SODIUM TABLET 2 TAB PO ×2 (09:56→17:01)
[2021-07-06] MEDS: APIXABAN 2.5 MG TABLET PO ×2 (09:56→21:03)
[2021-07-06] MEDS: CELECOXIB 100 MG CAPSULE PO (09:56)
--- NOTE | 2021-07-06 11:20 | PM.IMPN ---
Progress Note: A&P Assessment and Plan (1) Closed left hip fracture: Qualifiers: Encounter type: initial encounter Qualified Code(s): S72.002A - Fracture of unspecified part of neck of left femur, initial encounter for closed fracture Code(s): S72.002A - Fracture of unspecified part of neck of left femur, initial encounter for closed fracture Status: Acute Assessment and Plan: S/P biopolar hemiarthroplasty POD #1 and doing well -She is up out of bed and working with PT. Will discontinue berger -Mechanical fall with no dizziness, chest pain or shortness of breath. d/c tele -pain medication, PT/OT and anticoagulation per Ortho--on eliquis 2.5po BID for DVT prevention (2) Fall: Qualifiers: Encounter type: initial encounter Qualified Code(s): W19.XXXA - Unspecified fall, initial encounter Code(s): W19.XXXA - Unspecified fall, initial encounter Status: Acute Assessment and Plan: As above -Continue PT and OT (3) Hypothyroidism: Code(s): E03.9 - Hypothyroidism, unspecified Status: Acute Assessment and Plan: Continue levothyroxine -TSH within normal limits (4) HTN (hypertension), benign: Code(s): I10 - Essential (primary) hypertension Status: Acute Assessment and Plan: Last blood pressure 124/62 -continue losartan Subjective Date/time seen: 07/06/21 11:20 Interval history: Pt is a 76-year-old female here for hip fx after a mechanical fall. Pt has no pain today on exam. She did have slight pain when up and moving this morning but so far doing great. No numbness or tingling. She was unable to eat a full breakfast due to some nausea but had no vomiting. She denies CP and SOB as well Exam Narrative: General: Well developed well nourished patient in NAD HEENT: normocephalic Neck: supple Neuro: Alert and oriented x4. Full sensation intact to her left extremity CV:RRR Resp:CTA Abd: Soft, non distended. No pain to palpation. Positive bowel sounds Extremities: No swelling, erythema, or pain to palpation to the lower extremities. bandage intact with drain in place. No erythema. Pulses intact to the left leg as well as sensation Objective Data Vital Signs Vital Signs: Vital Signs - 24 hr 07/05/21 14:00 07/05/21 20:15 07/05/21 20:30 Temperature 99.2 F 98.2 F Pulse Rate 58 L 65 68 Respiratory Rate 16 9 L 11 L Blood Pressure 128/51 L 91/37 L 106/54 L Pulse Oximetry 97 99 100 07/05/21 20:45 07/05/21 21:00 07/05/21 21:14 Temperature 97.2 F L 97.2 F L Pulse Rate 73 60 60 Respiratory Rate 16 10 L 12 Blood Pressure 127/66 126/47 L 126/45 L Pulse Oximetry 100 99 95 07/05/21 21:30 07/05/21 21:45 07/05/21 22:15 Temperature 97.1 F L 97.2 F L 97.8 F Pulse Rate 70 58 L 62 Respiratory Rate 18 17 18 Blood Pressure 164/71 H 150/54 H 132/45 L Pulse Oximetry 97 98 94 07/05/21 23:15 07/06/21 00:00 07/06/21 04:00 Temperature 97.3 F L Pulse Rate 71 67 61 Respiratory Rate 18 Blood Pressure 127/46 L Pulse Oximetry 97 07/06/21 04:01 07/06/21 08:00 Temperature 97.9 F 99.0 F Pulse Rate 61 74 Respiratory Rate 18 16 Blood Pressure 127/62 124/62 Pulse Oximetry 99 98 Intake/Output Intake/Output: Intake & Output 07/03/21 07/04/21 07/05/21 07/06/21 23:59 23:59 23:59 23:59 Intake Total 2350 780 Output Total 1880 265 Balance 470 515 Meds/Results Medications: Active Medications Generic Name Dose Route Start Last Admin Trade Name Maikel PRN Reason Stop Dose Admin Acetaminophen 1,000 mg 07/05/21 22:00 07/06/21 05:34 Acetaminophen 500 Mg Tablet PO 1,000 mg Q6HR SOL Administration Apixaban 2.5 mg 07/06/21 09:00 07/06/21 09:56 Apixaban 2.5 Mg Tablet PO 2.5 mg Q12HR SOL Administration Celecoxib 100 mg 07/06/21 08:00 07/06/21 09:56 Celecoxib 100 Mg Capsule PO 07/15/21 08:01 100 mg DAILY@0800 SOL Administration Gabapentin 300 mg 08
--- NOTE | 2021-07-06 11:27 | P.PNAN_ITS ---
Anes - Prog Note Post-Op Date/Time: 07/06/21 11:27 Cardiovascular status: normal Respiratory status: normal Airway patency: baseline Mental status: baseline Post-Op hydration status: normal Vital Signs: Last Vital Signs Temp 37.2 C 07/06/21 08:00 Pulse 74 07/06/21 08:00 Resp 16 07/06/21 08:00 BP 124/62 07/06/21 08:00 Pulse Ox 98 07/06/21 08:00 Pain Score (VAS): 0 I/O: Intake & Output 07/05/21 07/06/21 07/06/21 23:59 07:59 15:59 Intake Total 350 300 480 Output Total 1180 265 Balance -830 35 480 Laboratory Tests 07/06/21 05:50 07/05/21 05:41 07/06/21 05:50 WBC 13.6 H RBC 3.84 L Hgb 11.7 L Hct 35.4 L MCV 92.2 MCH 30.5 MCHC 33.1 RDW 12.7 Plt Count 137 L MPV 10.4 Immature Gran % (Auto) 0.8 H Neut % (Auto) 86.2 H Lymph % (Auto) 5.9 L [place] % (Auto) 7.0 Eos % (Auto) 0.0 Baso % (Auto) 0.1 L Lymph # (Auto) 0.80 L [place] # (Auto) 1.0 H Eos # (Auto) 0.0 Baso # (Auto) 0.0 Abs Immat Gran (auto) 0.11 H Absolute Neuts (auto) 11.7 H Absolute Nucleated RBC 0.0 Nucleated RBC % 0.0 Post-procedural complaints: none Patient Feedback: Patient satisfied with anesthetic care.
--- NOTE | 2021-07-06 16:26 | PM.PNORT ---
Progress Note: A&P Additional Plan Patient is postoperative day 1. After bipolar hemiarthroplasty left hip. Her wound is dry her drain has been removed she has no swelling leg she is neurologically intact left leg. She is very comfortable. She has been up walking numerous times in the room and now halls today. She is in very good spirits and optimistic. Her was present. Her hemoglobin is very stable at 11.7 so she has a very mild acute blood loss anemia. Platelets 427041. Sodium was 134. Creatinine 0.6. Her creatinine and sodium were actually yesterday's. The EMR prompted me to cancel the duplicate BMP tests and apparently the BMP wanted for today was canceled the process. We will order this for tomorrow. I will check another CBC as well. If she is medically stable tomorrow she would be okay from my standpoint to return home with her 50% weight-bearing with a walker. Subjective Subjective Date/Time Seen: 07/06/21 16:26 Objective Data Vital Signs Vital Signs: Vital Signs - 24 hr 07/05/21 20:15 07/05/21 20:30 07/05/21 20:45 Temperature 36.8 C Pulse Rate 65 68 73 Respiratory Rate 9 L 11 L 16 Blood Pressure 91/37 L 106/54 L 127/66 Pulse Oximetry 99 100 100 07/05/21 21:00 07/05/21 21:14 07/05/21 21:30 Temperature 36.2 C L 36.2 C L 36.2 C L Pulse Rate 60 60 70 Respiratory Rate 10 L 12 18 Blood Pressure 126/47 L 126/45 L 164/71 H Pulse Oximetry 99 95 97 07/05/21 21:45 07/05/21 22:15 07/05/21 23:15 Temperature 36.2 C L 36.6 C 36.3 C L Pulse Rate 58 L 62 71 Respiratory Rate 17 18 18 Blood Pressure 150/54 H 132/45 L 127/46 L Pulse Oximetry 98 94 97 07/06/21 00:00 07/06/21 04:00 07/06/21 04:01 Temperature 36.6 C Pulse Rate 67 61 61 Respiratory Rate 18 Blood Pressure 127/62 Pulse Oximetry 99 07/06/21 08:00 07/06/21 12:00 07/06/21 12:44 Temperature 37.2 C 36.7 C Pulse Rate 74 63 Respiratory Rate 16 16 Blood Pressure 124/62 124/61 Pulse Oximetry 98 99 99 Intake/Output Intake/Output: Intake & Output 07/03/21 07/04/21 07/05/21 07/06/21 23:59 23:59 23:59 23:59 Intake Total 2350 2020 Output Total 1880 295 Balance 470 1725 Meds/Results Medications: Active Medications Generic Name Dose Route Start Last Admin Trade Name Freq PRN Reason Stop Dose Admin Acetaminophen 1,000 mg 07/05/21 22:00 07/06/21 12:22 Acetaminophen 500 Mg Tablet PO 1,000 mg Q6HR SOL Administration Apixaban 2.5 mg 07/06/21 09:00 07/06/21 09:56 Apixaban 2.5 Mg Tablet PO 2.5 mg Q12HR SOL Administration Celecoxib 100 mg 07/06/21 08:00 07/06/21 09:56 Celecoxib 100 Mg Capsule PO 07/15/21 08:01 100 mg DAILY@0800 SOL Administration Gabapentin 300 mg 07/04/21 19:35 07/06/21 13:41 Gabapentin 300 Mg Capsule PO 300 mg TID SOL Administration Vancomycin HCl 1,000 mg in 250 mls @ 250 mls/hr 07/06/21 05:00 07/06/21 05:25 Vancomycin 1,000 Mg/D5w 250 Ml IVPB 07/06/21 17:59 Infused Q12H SOL Infusion Cefazolin Sodium 1 gm in 50 mls @ 100 mls/hr 07/06/21 04:00 07/06/21 12:22 Ancef 1 Gm/D5w 50 Ml Pm IVPB 07/06/21 20:29 100 mls/hr Q8H SOL Administration Lactobacillus Acidophilus 1 tablet 07/05/21 09:00 07/06/21 09:55 Acidophilus/Bulgaricus Chewable Tablet PO 1 tablet DAILY SOL Administration Levothyroxine Sodium 88 mcg 07/05/21 06:30 07/06/21 05:34 Levothyroxine Sodium 88 Mcg Tablet PO 88 mcg DAILY@0630 SOL Administration Losartan Potassium 50 mg 07/06/21 09:00 07/06/21 09:56 Losartan Potassium 50 Mg Tablet PO 50 mg DAILY SOL Administration Magnesium Hydroxide 30 ml 07/05/21 21:15 Magnesium Hydroxide Susp 30 Ml Udc PO BID PRN Constipation Morphine Sulfate 2 mg 07/05/21 21:15 Morphine Sulfate (*Crx) 2 Mg/Ml Inj IV PUSH Q1H PRN Pain Rated 7-10 Naloxone HCl 0.1 mg 07/05/21 21:15 Naloxone Hcl 0.4 Mg/Ml Vial IV PUSH Q2M PRN Opiate Reversal Oxycodone HCl
[2021-07-06] MEDS: PRAVASTATIN SODIUM 20 MG TABLET 40 MG BY MOUTH (21:03)
[2021-07-07] MEDS: ACETAMINOPHEN 500 MG TABLET 1000 MG PO ×2 (00:56→05:31)
[2021-07-07] MEDS: oxyCODONE HCL (*CRX) 2.5 MG TAB IR PO ×2 (00:56→05:31)
[2021-07-07] MEDS: LEVOTHYROXINE SODIUM 88 MCG TABLET PO (05:31)
[2021-07-07 07:14] LABS: Hematocrit 32.8 % (37.0-47.0); Mean Corpuscular HGB Conc 33.5 g/dl (32-36); Mean Corpuscular Hemoglobin 31.3 pg (26-34); Mean Corpuscular Volume 93.4 fl (80-100); Mean Platelet Volume 10.7 fl (7.4-10.4); Platelet Count Result 118 k/mm3 (150-375); Red Blood Count 3.51 M/mm3 (4.2-5.4); Red Cell Distribution Width 13.1 % (11.5-14.5); White Blood Count 10.4 K/mm3 (4.5-10.0)
[2021-07-07 07:27] LABS: Anion Gap 3 mmol/L (8-16); Blood Urea Nitrogen 7 mg/dL (7-17); Calcium 8.2 mg/dL (8.4-10.2); Carbon Dioxide 25 mmol/L (22-30); Chloride 105 mmol/L (98-107); Estimated CRCL calculation 72 ml/min; Estimated Glomerular Filt Rate > 60; Glucose 99 mg/dL (65-110); Potassium 3.7 mmol/L (3.4-5.0); Sodium 133 mmol/L (137-145)
[2021-07-07] MEDS: LOSARTAN POTASSIUM 50 MG TABLET PO (09:20)
[2021-07-07] MEDS: CELECOXIB 100 MG CAPSULE PO (09:20)
[2021-07-07] MEDS: ACIDOPHILUS/BULGARICUS CHEWABLE TABLET 1 TABLET PO (09:20)
[2021-07-07] MEDS: GABAPENTIN 300 MG CAPSULE PO (09:20)
[2021-07-07] MEDS: APIXABAN 2.5 MG TABLET PO (09:20)
[2021-07-07] MEDS: polyethylene glycoL 3350 17 GM POWD.PACK PO (09:21)
--- NOTE | 2021-07-07 11:05 | PM.DS ---
DS: Admitting Diagnosis Admitting Diagnosis hip fracture DS: Discharge Diagnosis Discharge Diagnosis (1) Closed left hip fracture: Qualifiers: Encounter type: initial encounter Qualified Code(s): S72.002A - Fracture of unspecified part of neck of left femur, initial encounter for closed fracture Code(s): S72.002A - Fracture of unspecified part of neck of left femur, initial encounter for closed fracture Status: Acute Assessment and Plan: S/P biopolar hemiarthroplasty 07/05/21 with no complications -She is up out of bed and working with PT without issue. pain well controlled -Mechanical fall with no dizziness, chest pain or shortness of breath. -pain medication, PT/OT and anticoagulation per Ortho--on eliquis 2.5po BID for DVT prevention (2) Fall: Qualifiers: Encounter type: initial encounter Qualified Code(s): W19.XXXA - Unspecified fall, initial encounter Code(s): W19.XXXA - Unspecified fall, initial encounter Status: Acute Assessment and Plan: As above (3) Hypothyroidism: Code(s): E03.9 - Hypothyroidism, unspecified Status: Acute Assessment and Plan: Continue levothyroxine -TSH within normal limits (4) HTN (hypertension), benign: Code(s): I10 - Essential (primary) hypertension Status: Acute Assessment and Plan: Last blood pressure 113/52 -continue losartan DS: Summary Hospital Course Hospital Course: Patient is a 76-year-old female who presented emergency room with left hip pain after a mechanical fall found to have a subcapital fracture of the left femoral neck. Patient was admitted to the hospitalist service and underwent a bipolar hemiarthroplasty on 07/05/21 and did well. There were no complications. She was doing so well with physical therapy that she was able to be discharged home at discharge. She has a follow-up with Ortho was educated about worrisome signs and symptoms come back to emergency room for as well as precautions with anticoagulation. Status at Discharge Overall status at discharge: patient is progressing back to baseline Time Spent with Patient Time attestation: Total time spent providing and/or coordinating discharge services:36 min Exam Narrative: General: Well developed well nourished patient in NAD HEENT: normocephalic Neck: supple Neuro: Alert and oriented x4. Full sensation intact to her left extremity CV:RRR Resp:CTA Abd: Soft, non distended. No pain to palpation. Positive bowel sounds Extremities: No swelling, erythema, or pain to palpation to the lower extremities. bandage intact without No erythema or discharge. Pulses intact to the left leg as well as sensation DS: Data Data Completed and Pending Pending studies at discharge: Pending at discharge 07/05/21 18:36 Surgical [PTH] Routine Labs on day of discharge: Labs from last 24 hours 07/07/21 07/07/21 06:38 06:38 WBC 10.4 H RBC 3.51 L Hgb 11.0 L Hct 32.8 L MCV 93.4 MCH 31.3 MCHC 33.5 RDW 13.1 Plt Count 118 L MPV 10.7 H Sodium 133 L Potassium 3.7 Chloride 105 Carbon Dioxide 25 Anion Gap 3 L BUN 7 Creatinine 0.60 L Estim Creat Clear Calc 72 Estimated GFR > 60 Glucose 99 Calcium 8.2 L Discharge Plan Discharge Attending physician on discharge: April Dash Consulting providers: Jose Allison Discharging Clinician: Sienna Diamond Patient Disposition: Home Health Service Activity: follow weight bearing status Discharge Instructions: General Medicine Instructions: -please note your medications have changed -You are now on a blood thinner . This will make you bleed easier. If you have a wound or scrape yourself, you will need to hold pressure for a longer period of time. If you fall or hit your head, you will need to seek medical attention right away. Stop and call your doctor if you start to chase
== END 2021-07-07 12:20 | disposition home health service (06) | DRG 522 ==
LOC: ANHED 15:06 → ANH3MEDSUR 16:33
PROVIDERS: Nurse Practitioner; Orthopaedic Surgery; Physician Assistant; Admitting Provider Internal Medicine; Emergency Provider Emergency Medicine; PCP Internal Medicine; Visit Provider Family Medicine
PROC: 0SRS0JA Replacement of Left Hip Joint, Femoral Surface with Synthetic Substitute, Uncemented, Open Approach (ICD-10-PCS; CPT 27125; principal; 2021-07-05 17:00)
DX: S72.012A Unspecified intracapsular fracture of left femur, initial encounter for closed fracture (principal); W01.0XXA Fall on same level from slipping, tripping and stumbling without subsequent striking against object, initial encounter; M16.10 Unilateral primary osteoarthritis, unspecified hip; M47.896 Other spondylosis, lumbar region; I10 Essential (primary) hypertension; E03.9 Hypothyroidism, unspecified; Z79.899 Other long term (current) drug therapy
CPT/HCPCS: 36415; 51702; 71045; 73501; 73502; 73560; 80048; 80053; 82306; 84443; 85025; 85027; 85610; 85730; 88307; 88311; 93005; 96374; 96375; 97110; 97116; 97161; 97165; 97530; 97535; 99285; A9270; J0171; J0690; J1100; J1170; J1885; J2270; J2370; J2405; J2704; J2710; J2795; J3010; J3370; J7030; J7120

== ENCOUNTER 2021-08-29 11:00 | Outpatient (RCR) | payer OTHER, SELFPAY ==
--- NOTE | 2021-08-09 12:00 | PCPTNOTE ---
Addendum entered by Rose Marie Orellana, PT, DPT 08/10/21 11:21: Reviewed Documentation of Bert Gonzalez, SPT Original Note: On 08/10/21, the student, [ ], provided care and completed [facility] documentation on this patient. I have reviewed the student's documentation and agree with the findings.
--- NOTE | 2021-08-10 11:20 | PTOPEVAL ---
PHYSICAL THERAPY EVALUATION AND PLAN OF CARE Thank you for referring Allie Vela to [facility].? The patient is scheduled to be seen for therapy? 2x/week for 3 weeks. Please review, sign, date and return this plan of care EVETTE. I agree with and certify that the following plan of care is medically necessary. Referring Physician Date Attending Provider: Jose Allison MD Evaluation Outpatient Past Medical History Past Medical History Source of Past Medical History Patient Musculoskeletal History Hx Orthopedic Surgery Yes: R meniscus repair Evaluation Information Problem Diagnosis L hip devon-arthroplasty Onset 07/05/2021 Cause Fall Additional Evaluation Detail Pt was prescribed outpatient PT following home health therapy. She is four weeks post-op. Subjective Information Pt reports that she is Query Text:As Reported By Patient/ progressing well and Family occasionally has minor pain. She reports pain sidelying on L side. 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 Prior Level of Function Activity Level (Last 3 Months) Hand Dominance Right Activity of Daily Living Ability Independent Indoor/Home Mobility Independent Community Mobility Independent Stairs Ability Independent Functional Cognition (Planning, Shopping Independent , Taking Medications) Cooking Yes Cleaning Yes Laundry Yes Shopping Yes Driving Yes Home Setting Home Type House Environmental Barriers Stairs, Greater than 4 Living Situation With Spouse Mobility Assistive Devices (Used Last 3 Walker, Wheeled Months) Bathing Equipment Built in Shower Seat,Grab Bars Comments Additional Prior Level of Function -Pt is independent with all Comments ADL's. She reports that she needed stepstool prior to surgery for objects in higher cabinets. Pain Assessment Timing of Pain Assessment Timing of Pain Assessment Pre-Treatment Self Report Self Report Pain Level 0 Pain Score Pain Score 0: Self Report Additional Pain Score Comments Pt reported pain when lying on left side Lower Extremity Range of Motion
--- NOTE | 2021-08-29 13:40 | PTOPEVAL ---
PHYSICAL THERAPY PROGRESS REPORT Thank you for referring Allie Vela to [facility].? The patient is scheduled to be seen for therapy? 2x/week for 3-4 weeks. Please review, sign, date and return this plan of care EVETTE. I agree with and certify that the following plan of care is medically necessary. Referring Physician Date Attending Provider: Jose Allison MD Progress Problem Diagnosis L hip devon-arthroplasty Onset 07/05/2021 Cause Fall Subjective Information States that the most difficult Query Text:As Reported By Patient/ is sitting on the toilet and Family trying to standup from the toilet. States that she moves around a lot without her cane Pain Assessment Timing of Pain Assessment Timing of Pain Assessment Pre-Treatment Self Report Self Report Pain Level 0 Pain Score Pain Score 0: Self Report Lower Extremity Muscle Strength Testing Hip Strength Right Hip Flexion Strength 4+ Good + Hip Extension Strength 3- Fair - Hip Abduction Strength 3- Fair - Hip Strength Comments -MMT biceps femoris 3-/5; MMT gluteus cindy 4-/5. Knee Strength Left Knee Flexion Strength 4+ Good + Knee Extension Strength 4+ Good + Gait Assessment Gait Assessment Ambulation Assistive Devices Cane Weight Bearing Status - Left Full Weight Bearing Status - Right Full Maintains Weight Bearing Status Yes Ambulation Distance 150 Query Text:(Feet) Ambulation Destination In Gym Ambulation Direction Forward Ambulation Surface Level,Smooth Ambulation Ability Independent Cues Needed For Ambulation None Gait Pattern Assessment Gait Pattern Antalgic Gait,Trendelenburg Gait Other Gait Observations increased antalgia when walking without device PT Clinical Summary Pt presented to PT today 8 weeks post-op L hip devon- arthroplasty. She continues to demonstrate a significant decrease in strength of the left hip that is causing antalgia and Trendelenburg when walking without assistive device. 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 PT Services Indicated Yes Rehabilitation Potential
--- NOTE | 2021-09-22 11:51 | PCPTNOTE ---
PHYSICAL THERAPY DISCHARGE NOTE Attending Provider: Jose Allison MD Patient:Allie Vela Date of :1945 Allie has not returned for any further treatments since 08/29/2021. At her last appointment we developed a plan to continue PT for 3-4more weeks. She never made appointments for this plan to carry out, therefore she will be discharged at this time. Patient?s initial visit was on 08/09/2021. Thank you for referring this patient to [facility]. Please review, sign, date and return this discharge summary EVETTE. I have been updated about the patient's current status and I agree with discharge from the above service at this time. Referring Physician Date
== END 2021-09-23 10:53 | disposition home or self-care (01) ==
LOC: ANHPT 11:00
PROVIDERS: PCP Internal Medicine; Visit Provider Orthopaedic Surgery
DX: Z47.1 Aftercare following joint replacement surgery (principal); Z96.642 Presence of left artificial hip joint
CPT/HCPCS: 97110; 97116; 97140; 97161

== ENCOUNTER 2022-04-27 10:00 | Outpatient (RCR) | payer OTHER, SELFPAY ==
--- NOTE | 2022-03-30 13:43 | PTOPEVAL ---
PHYSICAL THERAPY EVALUATION AND PLAN OF CARE 03-30-22 Thank you for referring Allie Vela to [facility] for the diagnosis of chronic back pain. Allie is scheduled to be seen for therapy? 1 x/week for 4 weeks. Please review, sign, date and return this plan of care EVETTE. I agree with and certify that the following plan of care is medically necessary. Referring Physician Date Attending Provider: So Eldridge NP Past Medical History Source of Past Medical History Recalled from Previous Visit, Confirmed with Patient/Family Neurological History Hx Other Neurological Disorders Yes: neuropathy- in legs Cardiovascular History Hx Hypercholesterolemia Yes: meds Hx Hypertension Yes: meds Respiratory History Hx COVID-19 Yes: no residual issues Gastrointestinal History Hx Gastrointestinal Disorders No Significant History Genitourinary History Hx Genitourinary Disorders No Significant History Musculoskeletal History Hx Back Pain Yes: chronic back pain Hx Orthopedic Surgery Yes: L THR due to fall in Jun 2021 Hx Other Musculoskeletal Disorders Yes: R knee pain-had injections Endocrine History Hx Hypothyroidism Yes: meds Evaluation Information Diagnosis lumbar facet arthropathy, chronic LBP, degeneration of lumbar disc & osteoph Onset past year; Subjective Information gradual increase in back pain Query Text:As Reported By Patient/ over the past year, without Family any trauma or falls; had 3 sets of injections and back and leg pain is less; also getting treatment and injections for R knee; Activity Level (Last 3 Months) 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
--- NOTE | 2022-04-05 11:55 | PCPTNOTE ---
pt called and canceled today's appt;
--- NOTE | 2022-04-27 10:45 | PTOPEVAL ---
PHYSICAL THERAPY DISCHARGE REPORT 04-27-22 Refer to the clinical summary below, for her status today, compared to the initial evaluation. The goals were achieved; she will be discharged from PT services at this time. Thank you for referring Allie Vela to [facility] for low back pain. Please review, sign, date and return this Discharge report EVETTE. I agree with and certify that the following plan of care is medically necessary. Referring Physician Date Attending Provider: So Eldridge NP Subjective Information Allie reports: have been busy Query Text:As Reported By Patient/ with her son helping her do Family yard work; R knee pain is bothering her; back is better, doing exercises and getting stronger in hips and back; Pain Assessment Pain Scale Pain Scale Used Numeric (1 - 10) Self Report Pain Assessment Bilateral Back Reported Pain Level 0 Pain Frequency Chronic,Intermittent Other Pain Description tired in back after yard work, but not painful Additional Pain Score Comments R knee hurting, but in the past week, no pain in back; educated and reviewed pain management techniques: work/ rest balance, use heat/ice PRN , monitor back posture and frequent positional changes iwth tasks; alter activity to avoid repetition; Interventions Used Interventions Used By Clinicians Education,Exercise Gross Lower Extremity Range of Motion R hip extension 0' in prone Comments anterior hip/quad length with prone knee flexion R 105'/L 115' supine R knee extension (-5')/ L 0' Gross Lower Extremity Strength functional strength testing: -supine: abdominal control with alternating R/L leg lowering from hip flexion 90' x 20 reps; bridge with 5 sec hold x 20 reps; - prone hip extension R/ L x 20 reps; more labored and trunk motion with R - side lying hip abduction to 0-5' x 15 reps- report pain in R hip from lying on it verbal review of HEP: continue to perform, added supine
== END 2022-04-28 10:00 | disposition home or self-care (01) ==
LOC: ANHPT 10:00
PROVIDERS: PCP Internal Medicine
DX: M47.816 Spondylosis without myelopathy or radiculopathy, lumbar region (principal); M51.36 Other intervertebral disc degeneration, lumbar region; M25.78 Osteophyte, vertebrae; M54.50 Low back pain, unspecified; G89.29 Other chronic pain
CPT/HCPCS: 97110; 97112; 97140; 97161; 97530

== ENCOUNTER 2022-06-17 12:36 | Emergency (ER) | payer OTHER, SELFPAY ==
[2022-06-17 13:29] VITALS: BP 177/71; PULSE 67; RESP 16; TEMP 36.2; O2SAT 98
--- NOTE | 2022-06-17 14:29 | ED.BACK ---
HPI - Back Pain/Injury General Chief Complaint: Back Pain/Injury Stated Complaint: left lower back pain Time Seen by Provider: 06/17/22 14:30 Source: patient, RN notes reviewed and old records reviewed History of Present Illness HPI Narrative: 77-year-old female who presents to [facility] care with complaints of left lower back pain radiating down to the left buttocks which has been going on for the past 2 days.She reports hat she was carrying in some towels, capes and other items from her car into her home evening and she started having pain from her left lower back into her buttock with some cramping sensations in her lower extremities.Patient denies any difficulty with her bowel or bladder function, denies any saddle paraesthesia. Patient states that she had cortisone injection to her ight lower back about a week ago. Patient states that she has been taking OTC Ibuprofen for her pain and has been having to use a can to assist with ambulation which makes her pain worse. MD elicited complaint: back pain Related Data Home Medications Medication Instructions Recorded Confirmed gabapentin 300 mg capsule 300 mg TID 07/04/21 06/17/22 levothyroxine 88 mcg tablet 88 mcg PO DAILY 07/04/21 06/17/22 losartan 50 mg tablet 50 mg PO DAILY 07/04/21 06/17/22 pravastatin 40 mg tablet 40 mg HS 07/04/21 06/17/22 Allergies Allergy/AdvReac Type Severity Reaction Status Date / Time adhesive tape AdvReac Severe RASH Verified 06/17/22 14:01 Review of Systems Review of Systems: CONSTITUTIONAL: Denies fever, chills, or sweats. EYES: Denies visual changes, redness, or discharge. ENT: Denies rhinorrhea, congestion, sore throat, or otalgia. CARDIOVASCULAR: Denies chest pain, palpitations, or edema. RESPIRATORY: Denies cough or dyspnea. GASTROINTESTINAL: Denies abdominal pain, nausea, vomiting, or diarrhea. GENITOURINARY: Denies dysuria or hematuria. SKIN: Denies rash or itching. MUSCULOSKELETAL: Positive for back pain left radiating to her buttocks,no other joint pain, or myalgia. NEUROLOGIC: Denies headache, numbness, or weakness. PSYCHIATRIC: Denies anxiety or depression. All systems reviewed & are unremarkable except as noted in HPI and below PMFSH Past Medical History Medical History (Updated 06/18/22 @ 00:00 by Sunitha Key) HTN (hypertension), benign Hypercholesterolemia Hypothyroidism Obesity Osteoporosis Surgical History Surgical History (Updated 06/19/22 @ 16:27 by Bailee Ho NP) H/O sinus surgery History of left hip replacement Family History Family History Other Cerebrovascular accident Diabetes mellitus Family history of arthritis Social History Social History Smoking status: Never smoker Alcohol intake: current Drinks per week: 5 Substance use: never Additional living arrangements comments: Lives with 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 Spiritual care concerns: No Comments At time of signature, agree with nursing past medical, surgical, social and family history. There is no relevant family history pertinent to the presenting complaint Exam Narrative: GENERAL: Well-appearing, well-nourished, and in no acute distress. HEAD: Normocephalic, atraumatic. EYES: PERRLA and EOMI. ENT: Nares clear, no rhinorrhea or epistaxis. Mucous membranes moist.TM's normal with good light reflex, throat pink with no lesions or exudates or tonsil swelling NECK: Supple.no lymphadenopathy CHEST: Clear to auscultation. No respiratory distress.SAO2 98% on room air HEART: Regular rate and rhythm. No murmur heard. Normal peripheral pulses. ABDOMEN: Soft, nontender, nondistended, normal active bowel sounds. EXTREMITIES: Normal range of motion. No edema.pain to left lower back with radiation of pain in buttock, states some cramping in her lower extremities, den
== END 2022-06-17 15:00 | disposition home or self-care (01) ==
PROVIDERS: Emergency Provider Registered Nurse
DX: M54.50 Low back pain, unspecified (principal); M54.32 Sciatica, left side; I10 Essential (primary) hypertension; E78.00 Pure hypercholesterolemia, unspecified; E03.9 Hypothyroidism, unspecified; M81.0 Age-related osteoporosis without current pathological fracture; E66.9 Obesity, unspecified; Z68.27 Body mass index [BMI] 27.0-27.9, adult; Z96.642 Presence of left artificial hip joint
CPT/HCPCS: 99213; G0463

== ENCOUNTER 2023-11-25 09:35 | Emergency (ER) | payer OTHER, SELFPAY ==
[2023-11-25] VITALS (18 sets, daily range): BP systolic 128–137; BP diastolic 60–67; PULSE 64–90; RESP 7–20; TEMP 36.3; O2SAT 95–100
--- NOTE | ~2023-11-25 | CT_ITS ---
EXAMINATION: CTA chest PE protocol DATE: 11/25/2023 12:15 INDICATION: Chest pain, elevated d-dimer. Cough. TECHNIQUE: Computed tomography angiography (CTA) of the chest was performed with 100 mL Omnipaque-350 intravenous contrast timed to evaluate the pulmonary arteries. Coronal maximum intensity projection 3D-reconstructions were created by the technologist. Automated exposure control and iterative reconst ruction technique were employed. Exam dose: 288.45 mGy-cm total exam DLP. COMPARISON: 11/25/2023 PA and lateral chest FINDINGS: There is diagnostic contrast enhancement of the pulmonary arteries and no evidence of pulmo nary embolism. Prominent coronary artery calcification. Normal heart size. There is aortic and great vessel calcific ation. No thoracic aortic aneurysm or dissection. No hilar or mediastinal mass lesion or lymphadenopathy. Calcified right lower lobe pulmonary granulomas. Calcified splenic granulomas. Mild patchy focal tree-in-bud infiltrate in the posterior segment of the right upper lobe. Mild bilat eral lower lobe atelectasis. No adrenal mass lesion. Calcified bilateral hilar and subcarinal lymph nodes consistent with old pulm onary granulomatous disease. Degenerative changes of cervical, thoracic and lumbar spine. No suspicious osteolytic or osteoblastic lesions. IMPRESSION: No evidence of pulmonary embolism Mild tree-in-bud infiltrate, posterior segment right upper lobe, likely due to focal pneumonia Mild bilateral lower lobe atelectasis Old pulmonary granulomatous disease Reviewed, dictated and finalized at [facility]. Reviewed, dictated and finalized at [facility]. ING TENDER
--- NOTE | ~2023-11-25 | XR_ITS ---
XR chest 2V DATE: 11/25/2023 10:20 INDICATION: Cough. Patient felt a pop in the mid chest area. Chest pain. TECHNIQUE: PA and lateral views COMPARISON: 07/04/2021 portable AP chest FINDINGS: There is bilateral hyperinflation with relative flattening the diaphragm, consistent with C OPD. No pulmonary infiltrate or consolidation, pleural effusion or pulmonary vascular congestion or p neumothorax is detected. There is old pulmonary granulomatous disease. Normal heart size. Aortic calcification and mild unfolding. Diffuse osteopenia. Degenerative change of the thoracic and lumbar spine. IMPRESSION: COPD Aortic atherosclerosis Osteopenia Reviewed, dictated and finalized at [facility]. 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
[2023-11-25 10:33] LABS: Basophils Percent Auto 0.3 % (0.2-1.2); Eosinophils Percent Auto 0.5 % (0-4.4); Hematocrit 34.9 % (37.0-47.0); Hemoglobin 11.3 g/dL (12.0-15.0); Immature Granulocyte Absolute 0.02 K/mm3 (0.00-0.031); Immature Granulocyte Percent A 0.3 % (0-0.5); Lymphocytes Absolute Auto 1.33 K/mm3 (0.9-3.2); Lymphocytes Percent Auto 21.1 % (18.3-44.2); Mean Corpuscular HGB Conc 32.4 g/dl (32-36); Mean Corpuscular Hemoglobin 32.1 pg (26-34); Mean Corpuscular Volume 99.1 fl (80-100); Mean Platelet Volume 9.5 fl (7.4-10.4); Monocytes Absolute Auto 0.5 K/mm3 (0.1-0.6); Monocytes Percent Auto 7.5 % (2.6-8.5); Neutrophils Absolute Auto 4.4 K/mm3 (1.3-6.7); Neutrophils Percent Auto 70.3 % (45.5-73.1); Platelet Count Result 219 k/mm3 (150-375); Red Blood Count 3.52 M/mm3 (4.2-5.4); Red Cell Distribution Width 13.7 % (11.5-14.5); White Blood Count 6.3 K/mm3 (4.5-10.0)
[2023-11-25 10:42] LABS: Alanine Aminotransferase 17 U/L (6-35); Albumin Level 4.1 g/dL (3.5-5.1); Alkaline Phosphatase 63 U/L (38-126); Anion Gap 6 mmol/L (8-16); Aspartate Amino Transferase 28 U/L (14-36); Bilirubin,Total 0.8 mg/dL (0.2-1.3); Blood Urea Nitrogen 11 mg/dL (7-17); Calcium 8.8 mg/dL (8.4-10.2); Carbon Dioxide 30 mmol/L (22-30); Chloride 103 mmol/L (98-107); Estimated CRCL calculation 58 ml/min; Estimated Glomerular Filt Rate > 60; Glucose 97 mg/dL (65-110); Potassium 3.4 mmol/L (3.4-5.0); Sodium 139 mmol/L (137-145)
[2023-11-25 10:45] LABS: Influenza A QL RT-PCR Negative (Negative); Influenza B QL RT-PCR Negative (Negative); RSV RNA, RT-PCR Negative (Negative); SARS-CoV-2 RNA PCR Negative (Negative)
--- NOTE | 2023-11-25 10:55 | ECG_ITS ---
Measurements Intervals [place] Rate: 68 P: 64 DC: 153 QRS: 45 QRSD: 105 T: 53 QT: 406 QTc: 432 Interpretive Statements SINUS RHYTHM INCOMPLETE RIGHT BUNDLE BRANCH BLOCK BORDERLINE ECG COMPARED TO ECG 07/04/2021 14:52:19 NO SIGNIFICANT CHANGES Electronically Signed On 11-25-2023 16:06:18 PUBLIC SPEAKING PROFESSOR by Ross Castano D.O.
--- NOTE | 2023-11-25 10:56 | ED.URI ---
HPI - URI/Sore Throat General Chief Complaint: Upper Respiratory Infection Stated Complaint: productive cough: blowing yellow Time Seen by Provider: 11/25/23 09:53 Source: patient Mode of arrival: ambulatory Limitations: no limitations History of Present Illness HPI Narrative: This is a 78 year old female that presents to the ER for cold symptoms present over the last 5 days. Reports chills, fatigue, cough, congestion. Reports she coughed last night and felt like something cracked. Since she has had some pleuritic chest pain. Denies fevers. Related Data Home Medications Medication Instructions Recorded Confirmed gabapentin 300 mg capsule 300 mg TID 07/04/21 06/17/22 levothyroxine 88 mcg tablet 88 mcg PO DAILY 07/04/21 06/17/22 losartan 50 mg tablet 50 mg PO DAILY 07/04/21 06/17/22 pravastatin 40 mg tablet 40 mg HS 07/04/21 06/17/22 Allergies Allergy/AdvReac Type Severity Reaction Status Date / Time adhesive tape AdvReac Severe RASH Verified 11/25/23 09:36 Review of Systems Review of Systems: CONSTITUTIONAL: Denies fever ENT: Reports rhinorrhea, congestion. Denies sore throat CARDIOVASCULAR: Reports chest pain. Denies edema. RESPIRATORY: Reports cough. Denies dyspnea. All systems reviewed & are unremarkable except as noted in HPI and below PMFSH Past Medical History Medical History (Updated 11/25/23 @ 13:15 by Laura Bae PA-C) HTN (hypertension), benign Hypercholesterolemia Hypothyroidism Obesity Osteoporosis Surgical History Surgical History (Updated 06/19/22 @ 16:27 by Bailee Ho NP) H/O sinus surgery History of left hip replacement Family History Family History Other Cerebrovascular accident Diabetes mellitus Family history of arthritis Social History Social History Smoking status: Never smoker Alcohol intake: current Drinks per week: 5 Substance use: never Living arrangements: with family Additional living arrangements comments: Lives with Occupation/Education: occupation 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 Spiritual care concerns: No Exam Narrative: GENERAL: Well-appearing, well-nourished, and in no acute distress. HEAD: Normocephalic, atraumatic. EYES: EOMI. ENT: Nares clear, no rhinorrhea or epistaxis. Mucous membranes moist. Oropharynx without tonsillar hypertrophy exudate or other lesions. Bilateral TMs pearly taylor non-bulging NECK: Supple. No adenopathy or masses. CHEST: No respiratory distress. Rales in the right upper lobe. No wheezes or rhonchi HEART: Regular rate and rhythm. No murmur heard. Normal peripheral pulses. EXTREMITIES: Normal range of motion. No edema. SKIN: Warm, dry, no rash. NEURO: No focal deficits. Alert and oriented x3. PSYCH: Normal mood and affect Course Course Emergency Course: Patient updated on her workup and agrees with plan of care Vital Signs Vital signs: Vital Signs Temperature 97.3 F L 11/25/23 09:47 Pulse Rate 90 11/25/23 09:47 Respiratory Rate 20 11/25/23 09:47 Blood Pressure 137/66 11/25/23 09:47 Pulse Oximetry 98 11/25/23 09:47 Oxygen Delivery Room Air 11/25/23 09:47 Temperature 97.3 F L 11/25/23 09:47 Pulse Rate 90 11/25/23 09:47 Respiratory Rate 20 11/25/23 09:47 Blood Pressure 137/66 11/25/23 09:47 Pulse Oximetry 98 11/25/23 09:47 Oxygen Delivery Room Air 11/25/23 09:47 MDM - URI/Sore Throat MDM Narrative Medical decision making narrative: Patient presents to the emergency department for cold symptoms present over the last 5 days. Reporting some pleuritic chest discomfort. She is afebrile and nontoxic appearing. Oxygen saturation is normal on room air. CBC without leukocytosis. Metabolic panel without concerning findings. Influenza, COVID, and RSV screens are negative. EKG without
[2023-11-25 11:25] LABS: D Dimer 0.94 ug/mL (<0.48)
[2023-11-25 11:31] LABS: Troponin I < 0.012 ng/mL (0.000-0.034)
== END 2023-11-25 13:47 | disposition home or self-care (01) ==
PROVIDERS: Emergency Provider Physician Assistant; PCP Internal Medicine
DX: J18.9 Pneumonia, unspecified organism (principal); I10 Essential (primary) hypertension; E78.00 Pure hypercholesterolemia, unspecified; E03.9 Hypothyroidism, unspecified; M81.0 Age-related osteoporosis without current pathological fracture; Z20.822 Contact with and (suspected) exposure to COVID-19
CPT/HCPCS: 36415; 71046; 71275; 80053; 84484; 85025; 85380; 87637; 93005; 99284; Q9967

== ENCOUNTER 2025-09-13 16:30 | Emergency (ER) | payer MEDICARE, SELFPAY ==
[2025-09-13 16:44] VITALS: BP 146/70; PULSE 76; RESP 18; TEMP 36.9; O2SAT 99
--- NOTE | 2025-09-13 16:53 | ED.GENADULT ---
HPI - General Adult General Chief complaint: Allergic Reaction Stated complaint: Allergic Reaction Time Seen by Provider: 09/13/25 16:54 Source: patient, family, RN notes reviewed and old records reviewed Mode of arrival: ambulatory Limitations: no limitations History of Present Illness HPI narrative: 80 year old female accompanied by family member presents to [facility] care with complaints of not feeling well since having COVID and Flu vaccinations 3 days ago. Patient reports that she has been having fatigue, has felt achy and has had diarrhea once daily for the past 3 days. Patient reports no chills or any known fevers. Patient has some redness to right eye states fell asleep with contact in the other night denies any sharp pain or any drainage to right eye, or any bliurred vission. Patient reports no acute pain or any redness or swelling to site of injection in her left deltoid MD complaint: fatigue achy since having flu and COVID vaccinations 3 days ago Onset (ago): day(s) (3) Severity: mild Treatments prior to arrival: none Related Data Home Medications ?Medication ?Instructions ?Recorded ?Confirmed ?Last Taken ?Type gabapentin 300 mg capsule 300 mg PO TID 07/04/21 06/17/22 Unknown History levothyroxine 88 mcg tablet 88 mcg PO DAILY 07/04/21 06/17/22 Unknown History losartan 50 mg tablet 50 mg PO DAILY 07/04/21 06/17/22 Unknown History pravastatin 40 mg tablet 40 mg PO HS 07/04/21 06/17/22 Unknown History sertraline 50 mg tablet mg 09/13/25 Unknown History Allergies Allergy/AdvReac Type Severity Reaction Status Date / Time adhesive tape AdvReac Severe RASH Verified 09/13/25 16:52 Review of Systems Review of Systems: CONSTITUTIONAL: Denies fever, chills, or sweats. EYES: Denies visual changes, redness of right sclera forgot to take out contact the other night, no discharge. ENT: Denies rhinorrhea, congestion, sore throat, or otalgia. CARDIOVASCULAR: Denies chest pain, palpitations, or edema. RESPIRATORY: Denies cough or dyspnea. GASTROINTESTINAL: Denies abdominal pain, nausea, vomiting, has had 1 episode of diarrhea daily for the past 3 days . GENITOURINARY: Denies dysuria or hematuria. SKIN: Denies rash or itching. MUSCULOSKELETAL: Denies back pain, joint pain, reports myalgia NEUROLOGIC: Denies headache, numbness, or weakness. PSYCHIATRIC: Positive for history of anxiety or depression. All systems reviewed & are unremarkable except as noted in HPI and below PMFSH Past Medical History Medical History (Updated 09/13/25 @ 17:22 by Bailee Ho APRN) Obesity Osteoporosis Hypercholesterolemia HTN (hypertension), benign Hypothyroidism Surgical History Surgical History (Updated 06/19/22 @ 16:27 by Bailee Ho APRN) H/O sinus surgery History of left hip replacement Family History Family History Other Cerebrovascular accident Diabetes mellitus Family history of arthritis Social History Social History Smoking status: Never smoker Alcohol intake: current Drinks per week: 5 Substance use: never Living arrangements: with family Additional living arrangements comments: Lives with Occupation/Education: occupation 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 Spiritual care concerns: No Comments At time of signature, agree with nursing past medical, surgical, social and family history. There is no relevant family history pertinent to the presenting complaint Exam Narrative: GENERAL: Well-appearing, well-nourished, and in no acute distress. HEAD: Normocephalic, atraumatic. EYES: PERRLA and EOMI. some redness of right sclera denies any pain or feeling of irritation or any change of vision ENT: Nares clear, no rhinorrhea or epistaxis. Mucous membranes moist.TM's normal throat pink with no swelling NECK: Supple no lymphadenopathy. CHEST: Clear to auscultation. No respiratory distress. no cough or any shortness of breath SAO2 99% on room air HEART: Regular rate and rhythm. No murmur heard. Normal peripheral pulses. ABDOMEN: Soft, nontender, nondistended, normal active bowel sounds. EXTREMITIES: Normal range of motion. No edema. SKIN: Warm, dry, no rash. NEURO: No focal deficits. Alert and oriented x3. Course Course Emergency Course: Patient is aware of diagnosis, understands and agrees to treatment plan.? Anticipatory guidance given.? Patient agrees to follow-up as directed and is aware of reasons to seek care at the emergency department. Portions of this record may have been created with voice recognition software Level of Care: Express Care Visit Vital Signs Vital signs: Vital Signs Temperature 36.9 C 09/13/25 16:44 Pulse Rate 76 09/13/25 16:44 Respiratory Rate 18 09/13/25 16:44 Blood Pressure 146/70 H 09/13/25 16:44 Pulse Oximetry 99 09/13/25 16:44 Oxygen Delivery Room Air 09/13/25 16:44 Temperature 36.9 C 09/13/25 16:44 Pulse Rate 76 09/13/25 16:44 Respiratory Rate 18 09/13/25 16:44 Blood Pressure 146/70 H 09/13/25 16:44 Pulse Oximetry 99 09/13/25 16:44 Oxygen Delivery Room Air 09/13/25 16:44 Reviewed Medical Decision Making MDM Narrative Medical decision making narrative: Exam findings and imaging show no acute concerns or changes; patient is non-toxic appearing and is in no distress.? Patient is appropriate for outpatient treatment and follow-up Medical Records Medical records reviewed: Yes I reviewed the external patient's medical records. Vital Signs Vital Signs: Vital Signs Temperature 36.9 C 09/13/25 16:44 Pulse Rate 76 09/13/25 16:44 Respiratory Rate 18 09/13/25 16:44 Blood Pressure 146/70 H 09/13/25 16:44 Pulse Oximetry 99 09/13/25 16:44 Oxygen Delivery Room Air 09/13/25 16:44 Temperature 36.9 C 09/13/25 16:44 Pulse Rate 76 09/13/25 16:44 Respiratory Rate 18 09/13/25 16:44 Blood Pressure 146/70 H 09/13/25 16:44 Pulse Oximetry 99 09/13/25 16:44 Oxygen Delivery Room Air 09/13/25 16:44 reviewed Critical Care Time Critical Care Time Critical Care Time: No Discharge Plan Discharge Clinical Impression: Influenza vaccine side effect, Body aches after vaccination Patient Disposition: Home Condition: Stable Instructions: Antibiotic Form, Flu Shot (Vaccine) for Adults (ED) Additional Instructions: Make sure to take Tylenol or or ibuprofen for any fevers or body aches, monitor for any fever Drink plenty of fluids and eat well-balanced diet Zyrtec Claritin or Maliha daily If your symptoms persist, change or worsen significantly before you can contact your personal physician then please, without delay, go to the emergency department for further evaluation. Follow-up with PCP in 7-10 days or sooner if needed Follow up with PCP soon in regards to your blood pressure which is elevated above threshold for referral. Blood pressure above 120/80 may indicate pre-hypertension. 146/70 Call your physician tomorrow if you continue to feel poorly Patient Language: [place] Prescriptions: No Action sertraline 50 mg tablet losartan 50 mg tablet 50 mg PO DAILY pravastatin 40 mg tablet 40 mg PO HS levothyroxine 88 mcg tablet 88 mcg PO DAILY gabapentin 300 mg capsule 300 mg PO TID Follow-up/Referrals: Kevon,Adriana Houston MD [Primary Care Provider, Internal Medicine] Time of Disposition: 17:22 Quality [place] Coma Scale Eyes: Open Verbal: Oriented and Alert Motor: Follows Commands [place] Coma Total Score: 15
== END 2025-09-13 17:34 | disposition home or self-care (01) ==
PROVIDERS: Emergency Provider Registered Nurse; PCP Internal Medicine
DX: R52 Pain, unspecified (principal); T50.B95A Adverse effect of other viral vaccines, initial encounter; I10 Essential (primary) hypertension; E03.9 Hypothyroidism, unspecified; E78.00 Pure hypercholesterolemia, unspecified; M81.0 Age-related osteoporosis without current pathological fracture; Z68.21 Body mass index [BMI] 21.0-21.9, adult; E66.9 Obesity, unspecified; Z96.642 Presence of left artificial hip joint
CPT/HCPCS: 99211; G0463